=== PATIENT | female | born 1940 | race Caucasian/White ===

== ENCOUNTER 2023-09-09 05:55 | Emergency (ER) | payer MEDICARE, SELFPAY ==
[2023-09-09 06:00] VITALS: BP 144/94
[2023-09-09 06:18] LABS: % Basophils 0.3 % (0-2); % Eosinophils 1.2 % (0-6); % Immature Granulocytes 0.4 % (0-0.5); % Lymphocytes 4.1 % (20.5-51.1); % Monocytes 7.7 % (1.7-9.3); % Neutrophils 86.3 % (42.2-75.2); Absolute Eosinophils 0.2 10^3/uL (0-0.7); Absolute Immature Granulocytes 0.1 10^3/uL (0-0.05); Absolute Lymphocytes 0.6 10^3/uL (1.2-3.4); Absolute Monocytes 1.1 10^3/uL (0.1-0.6); Absolute Neutrophils 12.6 10^3/uL (1.4-6.5); Hematocrit 40.5 % (37.0-47.0); Hemoglobin 14.1 g/dL (12.0-16.0); Mean Corp Hgb Conc. 34.8 g/dL (33.0-37.0); Mean Corpuscular Hgb 35.1 pg (27.0-31.0); Mean Corpuscular Volume 100.7 fL (81.0-99.0); Mean Platelet Volume 10.3 fL (7.4-10.4); Nucleated Red Blood Cells % 0 %; Platelet Count 168 10^3/uL (130-400); Red Blood Cell Count 4.02 10^6/uL (4.20-5.40); Red Cell Dist. Width 12.3 % (11.5-14.5); White Blood Cell Count 14.6 10^3/uL (4.8-10.8)
[2023-09-09 06:31] LABS: ALT (SGPT) 19 U/L (0-35); AST (SGOT) 30 U/L (14-36); Albumin 4.4 g/dl (3.5-5.0); Alkaline Phosphatase 94 U/L (38-126); Blood Urea Nitrogen 28 mg/dl (7-17); Calcium 9.9 mg/dl (8.4-10.2); Carbon Dioxide 24 mmol/L (22-30); Chloride 105 mmol/L (98-107); Glucose 126 mg/dl (70-99); Lipase 224 U/L (23-300); Potassium 4.1 mmol/L (3.5-5.1); Sodium 139 mmol/L (135-145); Total Protein 7.6 g/dl (6.3-8.2); eGFR 37.33
[2023-09-09 07:01] VITALS: BP 141/74
--- NOTE | 2023-09-09 07:04 | ED.GENMED ---
History of Present Illness
General
Chief Complaint: Abdominal Symptoms
Source: patient
Exam Limitations: none
Time Seen by Provider: 09/09/23 06:24
Nursing documentation reviewed up to this point in time: agreed with
History of Present Illness
History of Present Illness:
The patient is a pleasant 82-year-old female who arrives by ambulance with complaints of feeling dehydrated and experiencing diarrhea. Patient reports the diarrhea started abruptly at around 3 AM and has been frequent since then. Patient reports
the diarrhea is very watery, nonbloody and yellowish. Patient reports she experienced nausea earlier but no vomiting. She denies fever but reports feeling hot and cold. Patient reports she lives alone and has not seen anyone for at least a week.
She denies recent antibiotic use and travel history. Patient reports she has had diarrhea similar to this in the past but it has been quite sometime. Patient denies abdominal pain and current nausea. Patient denies chest pain or shortness of
breath. Patient reports she feels slightly lightheaded and suspects that she is dehydrated.
Past History
Past History
ED Past Medical History: Arrthythmia (Atrial fibrillation), CHF, CVA, HTN and Other (Migraines)
ED Past Surgical History: Appendectomy
Social History
Tobacco: Non-smoker
Alcohol: Occasional
Drug: None
Personal:
Living: alone
Employment: Not employed
Family History
Family History: Other
Review of Systems
Review of Systems
Allergies reviewed?: Yes
All Other Systems: ROS reviewed and negative except as documented in HPI and ROS
Constitutional: Reports no symptoms
EENT: Reports no symptoms
Respiratory: Reports no symptoms
Cardiac: Reports no symptoms
ABD/GI: Reports nausea and diarrhea
: Reports no symptoms
Musculoskeletal: Reports no symptoms
Skin: Reports no symptoms
Neurological: Reports no symptoms
Endocrine: Reports no symptoms
Hematologic/Lymphatic: Reports no symptoms
Psychiatric: Reports no symptoms
Phy Exam
Physical Exam
Physical Exam:
Physical Exam
General: no apparent distress, not acutely ill
Neck: supple. no meningeal signs. normal psoterior pharynx
Heart: Irregular, tachycardic
Lungs: no acute respiratory distress. clear bilaterally
Abdomen: normal bowel sounds. not tender. no CVAT. Soft and nontender throughout
Neuro: alert and oriented. no focal neurological deficits
Skin: no rash
Psychiatric: well kept. interactive and cooperative
Extremities: no edema. no calf tenderness. negative homans. good distal pulses
Course
Orders/Labs/Results
Orders:
Orders
09/09/23 05:59
IV Insert/Care/Rem.- Treatment PRN
09/09/23 06:01
Electrocardiogram (*1) Urgent
Reason for Study: Tachycardia
EKG- Treatment ONCE
09/09/23 06:10
Complete Blood Count/With Diff Urgent
Comprehensive Metabolic Panel Urgent
Lipase Urgent
09/09/23 08:16
CDIFF [C difficile Antigen & Toxins] Urgent
DINESH Source: Feces/Stool
Specimen Description:
Date Specimen was Collected: 09/09/23
Time Specimen was Collected: 08:15
Stool Culture Urgent
DINESH Source: Feces/Stool
Specimen Description:
Date Specimen was Collected: 09/09/23
Time Specimen was Collected: 08:15
Abnormal Lab Results
09/09/23
06:10
WBC 14.6 H 10^3/uL
(4.8-10.8)
RBC 4.02 L 10^6/uL
(4.20-5.40)
MCV 100.7 H fL
(81.0-99.0)
MCH 35.1 H pg
(27.0-31.0)
Abs Immat Gran (auto) 0.1 H 10^3/uL
(0-0.05)
Absolute Neuts (auto) 12.6 H 10^3/uL
(1.4-6.5)
Absolute Lymphs (auto) 0.6 L 10^3/uL
(1.2-3.4)
Absolute Monos (auto) 1.1 H 10^3/uL
(0.1-0.6)
Neutrophils % 86.3 H %
(42.2-75.2)
Lymphocytes % 4.1 L %
(20.5-51.1)
BUN 28 H mg/dl
(7-17)
Creatinine 1.4 H mg/dL
(0.6-1.0)
Glucose 126 H mg/dl
(70-99)
09/09/23 06:10
09/09/23 06:10
Vital Signs
Initial and Last Documented VS:
Initial Vital Signs
Temp Pulse Resp BP Pulse Ox
98.4 F 137 18 144/94 99
09/09/23 06:00 09/09/23 06:00 09/09/23 06:00 09/09/23 06:00 09/09/23 06:00
Last Documented Vital Signs
Temp Pulse Resp BP Pulse Ox
97.7 F 84 16 118/86 99
09/09/23 07:21 09/09/23 11:39 09/09/23 09:45 09/09/23 11:39 09/09/23 11:39
MDM/Problems Addressed
Differential Diagnosis Includes:
Viral gastroenteritis, colitis, diverticulitis
MDM/Problems Addressed:
Patient presents with acute diarrhea
Chronic conditions affecting care:
Given patient has a history of A-fib, when she gets dehydrated she may develop A-fib with RVR
Acute Exacerbation and/or Progression of Chronic Illness:
Patient is acutely tachycardic which is likely due to dehydration and chronic A-fib
Acute Exacerbation and/or Progression of Chronic Illness: Arrhythmia
*Pulse Oximetry
Patient hypoxic: no
*EKG
Interpreted by ED Provider?: Yes
Interpretation: abnormal
Comparison EKG: no changes
Rate: tachycardiac
Rhythm: a-fib
[place]: left axis deviation
Interval: normal interval
QRS Pattern: normal QRS
Ischemia: non-specific ST changes
*Game Warden Interpretation
Rate: tachycardiac
Interpretation: abnormal
Rhythm: a-fib
*Critical Care Note
Total Time (30-74mins, 75-104mins- exclusive of procedures): Not Applicable
Data Reviewed
Review of Other/Old Records Reveals: Testing (Echo done in 2019 shows an EF of 40%)
Source: patient
Update Note
Update Note:
Patient is able to drink fluids without any nausea or vomiting. Patient reports she feels well. Her abdomen remains soft and nontender. Patient encouraged to continue taking Imodium and follow-up with her primary care doctor in 1 to 2 days.
ED Attending Note
-
Portions of this chart may have been created with voice recognition software.� Occasional wrong word or��sound alike� substitutions may have occurred due to the inherent limitations of voice recognition software.
Discharge Plan
Departure
Patient Disposition: Home (Routine Discharge)
Date of Disposition: 09/09/23
Time of Disposition: 11:01
Patient with high blood pressure during this ER visit?: Yes
Condition: Good
Covid-19: Not Applicable
Discharge Problem:
Diarrhea, Dehydration
Instructions: Dehydration, Adult (DC), [place] Diet, Acute Diarrhea, BLOOD PRESSURE
Prescriptions:
No Action
loratadine 10 MG tablet
10 mg PO HS
cholecalciferol (vitamin D3) [Vitamin D3] 1,000 UNIT capsule
2,000 unit PO DAILY
atenolol 25 MG tablet
75 mg PO BID
cyanocobalamin (vitamin B-12) 1,000 MCG tablet
1,000 mcg PO DAILY
Vitamin B 50
1 tab PO DAILY
lisinopril [Prinivil] 5 MG tablet
10 mg PO DAILY
Vitamin E
1 tab PO DAILY
magnesium 200 MG tablet
400 mg PO DAILY
diltiazem HCl 120 MG capsule,extended release 12 hr
120 mg PO DAILY Qty: 30 0RF
Referrals:
NONE,* [Family Provider] -
Activity Restrictions/Additional Instructions:
Please follow up with your doctor in 1-2 days
Interventions
Interventions:
*Risk Screen - Suicide Last Done: 09/09/23 05:58
*General Assessment Last Done: 09/09/23 05:58
*Neglect/Abuse Screening Last Done: 09/09/23 05:58
ED- Fall Risk Assessment Last Done: 09/09/23 11:39
*ED COVID-19 Vaccine History Last Done: 09/09/23 05:58
*Nursing Disposition Last Done: 09/09/23 11:39
PX-Dxbfnc-Skioeozphk Assessment Last Done: 09/09/23 07:23
Discharge Date and Time
Discharge Date/Time: 09/09/23 11:41
Print Language: PORTUGUESE
[2023-09-09 08:00] VITALS: BP 143/75
[2023-09-09 09:00] VITALS: BP 143/75
[2023-09-09 10:00] VITALS: BP 114/88
[2023-09-09 11:39] VITALS: BP 118/86
== END 2023-09-09 11:41 | disposition home or self-care (01) ==
LOC: EMR 05:55
PROVIDERS: Emergency Medicine; EMERGENCY PHYSICIAN Emergency Medicine
DX: R19.7 Diarrhea, unspecified (principal); R11.0 Nausea; R42 Dizziness and giddiness; E86.0 Dehydration; R00.0 Tachycardia, unspecified; I48.91 Unspecified atrial fibrillation; I11.0 Hypertensive heart disease with heart failure; I50.9 Heart failure, unspecified; G43.909 Migraine, unspecified, not intractable, without status migrainosus; I34.0 Nonrheumatic mitral (valve) insufficiency; M19.90 Unspecified osteoarthritis, unspecified site; F41.9 Anxiety disorder, unspecified; Z86.73 Personal history of transient ischemic attack (TIA), and cerebral infarction without residual deficits; Z88.1 Allergy status to other antibiotic agents; Z91.048 Other nonmedicinal substance allergy status
CPT/HCPCS: 99283; 80053; 83690; 85025; 87045; 87046; 87324; 87427; 87449; 93005

== ENCOUNTER → 2024-05-28 12:50 | Outpatient (REF) | payer MEDICARE, SELFPAY | LOC: RCS 12:50 | PROVIDERS: ATTENDING PHYSICIAN Physician Assistant Medical | DX: I10 Essential (primary) hypertension (principal) | CPT/HCPCS: 93306 ==